=== PATIENT | male | born 1940 | race Caucasian/White ===

== ENCOUNTER → 2019-05-10 | Outpatient (CLI) | payer OTHER, MEDICARE ==
[~2019-05-10] MED LIST: ASA81BEC PO; BENICAR20 MG PO; FISH OIL 1,0001 EAC9 PO; HYDROCHLOROTH12.5 M1 PO; KLOR-CON 1010 MEQ PO; LEVO-T25 MCG PO; LUTEIN6 M1 PO; METFORMIN HCL500 M3 PO; OMEPRAZOLE 20 M20 M1 PO; PEPCID20 MG PO; SIMVASTATIN80 MG PO; SUPER THERAVIT1 EACH PO; TOPROL XL50 MG PO; ZYRTEC10 M5 PO
[2019-05-10 10:57] LABS: CREATININE 1.3 mg/dL (0.7-1.3)
== END ==
LOC: CAT 10:17
PROVIDERS: Family Medicine
DX: I77.810 Thoracic aortic ectasia (principal); M25.78 Osteophyte, vertebrae

== ENCOUNTER 2019-06-03 13:17 | Inpatient (IN) | payer OTHER, MEDICARE ==
[~2019-06-03] VITALS: Ht 175.3 cm; Wt 81.2 kg
[2019-06-03 13:29] VITALS: BP 184/98
--- NOTE | 2019-06-03 13:41 | NUR ---
WITNESS OF STROKE SYMPTOMS CONTACTED BY DR STOVER FOR MORE INFORMATION. CO-WORKER REPORTS DIFFICULTY WITH SPEAKING AND WALKING.
[2019-06-03 13:58] LABS: HEMATOCRIT 41.4 % (42.0-52.0); HEMOGLOBIN 13.8 gm/dL (14.0-18.0); MCH 30.8 pg (26.0-34.0); MCHC 33.3 g/dL (28.0-37.0); MCV 92.5 fL (80.0-100.0); PLATELET COUNT 214 thou/uL (150-400); RBC 4.48 mil/uL (4.50-6.00); RDW 14.5 % (10.5-14.5); WBC 6.2 thou/uL (4.0-11.0)
[2019-06-03 14:11] LABS: ANION GAP 4 mmol/L (7-16); BUN 10 mg/dL (7-18); CALCIUM 9.5 mg/dL (8.5-10.1); CHLORIDE 102 mmol/L (98-107); CO2 33 mmol/L (21-32); CREATININE 1.2 mg/dL (0.7-1.3); GLUCOSE 172 mg/dL (74-106); POTASSIUM 3.7 mmol/L (3.5-5.1); SODIUM 139 mmol/L (136-145)
[2019-06-03 14:12] LABS: APTT 29.9 Seconds (24.5-32.8); PROTIME 10.2 Seconds (9.3-11.4)
[2019-06-03 14:21] LABS: ALBUMIN 3.4 g/dL (3.4-5.0); SGOT 23 U/L (15-37); SGPT 34 U/L (30-65); TOTAL BILIRUBIN 0.4 mg/dL (<0.1-1.0); TOTAL PROTEIN 6.5 g/dL (6.4-8.2); TROPONIN-I <0.06 ng/mL (<0.06)
[2019-06-03 14:28] LABS: ABSOLUTE NEUTROPHILS 4.2 thou/uL (1.4-8.2)
[2019-06-03 14:30] LABS: URINE BILIRUBIN NEGATIVE (Negative); URINE BLOOD NEGATIVE (Negative); URINE CLARITY CLEAR; URINE COLOR YELLOW; URINE GLUCOSE-RANDOM* NEGATIVE (Negative); URINE KETONES NEGATIVE (Negative); URINE LEUKOCYTES-REFLEX NEGATIVE (Negative); URINE NITRITE-REFLEX NEGATIVE (Negative); URINE PROTEIN (DIPSTICK) NEGATIVE (Negative); URINE SPECIFIC GRAVITY 1.015 (1.005-1.035); URINE UROBILINOGEN 0.2 E.U./dl (0.2-1.0)
[2019-06-03 14:38] LABS: AMP/METHAMP Negative (Negative); BARBITURATES Negative (Negative); BENZODIAZEPINES Negative (Negative); COCAINE Negative (Negative); METHADONE Negative (Negative); OPIATES Negative (Negative); PCP Negative (Negative)
[2019-06-03] MEDS ORDERED: ZYRTEC10 M5 PO (14:41)
[2019-06-03] MEDS ORDERED: METFORMIN HCL500 M3 PO (14:41)
[2019-06-03] MEDS ORDERED: BENICAR20 MG PO (14:42)
[2019-06-03] MEDS ORDERED: SIMVASTATIN80 MG PO (14:42)
[2019-06-03] MEDS ORDERED: ASA81BEC PO (14:43)
[2019-06-03] MEDS ORDERED: KLOR-CON 1010 MEQ PO (14:43)
[2019-06-03] MEDS ORDERED: TOPROL XL50 MG PO (14:43)
[2019-06-03] MEDS ORDERED: FISH OIL 1,0001 EAC9 PO (14:43)
[2019-06-03] MEDS ORDERED: SUPER THERAVIT1 EACH PO (14:43)
[2019-06-03] MEDS ORDERED: LEVO-T25 MCG PO (14:43)
[2019-06-03] MEDS ORDERED: OMEPRAZOLE 20 M20 M1 PO (14:44)
[2019-06-03] MEDS ORDERED: LUTEIN6 M1 PO (14:44)
--- NOTE | 2019-06-03 15:12 | NUR ---
ELECTRICAL TESTER BATTERY RN TO SEE PATIENT POST PAGE IN ED ROOM 12. NIHSS COMPLETED WITH A SCORE OF 0. SWALLOW SCREEN COMPLETED AND PATIENT HAS NO COMPLAINTS OR DIFFICULTIES SWALLOWING. 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 DR STOVER NOTIFIED. CT HEAD WAS NEGATIVE AND CTA ORDERED IN ED. WILL CONTINUE TO MONITOR.
[2019-06-03 15:33] VITALS: BP 188/87
[2019-06-03 15:34] VITALS: BP 178/105
--- NOTE | 2019-06-03 16:50 | EKG ---
[place] [address] [facility] [place] [address] ELECTROCARDIOGRAM REPORT Name: KAILA NORRIS Room #: 351-P ADM IN M.R.#: [id number] Admission: 06/03/19 Attend Phys: Joe Kumar MD Discharge: Date of : 36 Report #: [id number] THIS REPORT FOR: //name// [facility] ED Test Date: 2019-06-03 Test Time: 14:07:09 Pat Name: KAILA NORRIS Department: Room: 351 Gender: M Pari Mutuel Clerk: sol : [id number] Requested By: Thaddeus Salas Order Number: [id number] MD: Tera Wallace Measurements Intervals Dunning Rate: 61 P: 40 MD: 196 QRS: -44 QRSD: 106 T: 3 QT: 425 QTc: 428 Interpretive Statements Sinus rhythm LAFB Abnormal R-wave progression, late transition Compared to ECG 06/20/2008 07:13:46 Possible ischemia no longer present Prolonged QT interval no longer present Electronically Signed On 06-03-2019 16:49:48 INFORMATION SYSTEMS PROFESSOR by Tera Wallace [email or web address] <ELECTRONICALLY SIGNED> By: Tera Wallace MD, [facility] 06/03/19 1649 1407 140 Tera Wallace MD, [facility] /EPI
[2019-06-03 17:54] VITALS: BP 157/81
--- NOTE | 2019-06-03 17:54 | NUR ---
ASSUMED CARE OF PATIENT ON ADMISSION TO FLOOR. VSS. ALERT AND ORIENTED X 4. NO NEURO DEFICIENCIES OBSERVED. PATIENT COMPLAINS OF HEADACHE - MEDICATION PROVIDED PARTIAL RELIEF. NEUROLOGY CONSULTED AND SAW PATIENT TODAY. NO ACUTE FINDINGS IN IMAGING. PATIENT CANNOT HAVE MRI DUE TO HARDWARE IN BODY. CONTINUING TO MONITOR.
[2019-06-03 20:48] VITALS: BP 164/86
[2019-06-03] MEDS ORDERED: PEPCID20 MG PO (20:54)
[2019-06-03] MEDS ORDERED: HYDROCHLOROTH12.5 M1 PO (21:29)
--- NOTE | 2019-06-03 23:48 | NUR ---
Patient reported a continuing GUEVARA this evening. He was administered acetaminophen to partial relief. Additional ibuprofen was ordered, which patient declined. Clarence will continue to monitor.
[2019-06-04 00:26] VITALS: BP 151/74
[2019-06-04 05:01] VITALS: BP 165/82
[2019-06-04 07:28] VITALS: BP 169/78
--- NOTE | 2019-06-04 09:28 | 2DMMODE ---
[address] [address] 2 D/M-MODE ECHOCARDIOGRAM Name: MYRNAKAILA Room #: 351-P [facility] IN M.R.#: [id number] Admission: 06/03/19 Attend Phys: Joe Kumar, Discharge: Date of : 36 Report #: [id number] THIS REPORT FOR: //name// APPROVED REPORT Study performed: 06/04/2019 08:27:49 EXAM: Comprehensive 2D, Doppler, and color-flow Echocardiogram Patient Location: Echo lab Status: routine BSA: 1.97 HR: 63 bpm BP: 169/78 mmHg Rhythm: Irregular Other Information Study Quality: Good Indications CVA/TIA Echo Enhancing Agent Indication: Rule out Shunt Agent(s) / Amount(s) Used: Agitated Saline 8 cc Comments: No shunting noted by contrast bubble injection. Left Ventricle The left ventricle is normal size. There is normal left ventricular wall thickness. The left ventricular systolic function is normal. The left ventricular ejection fraction is within the normal range. LVEF is 55-60%. Right Ventricle The right ventricle is normal size. Atria The left atrium size is normal. No shunting by contrast bubble injection The right atrium size is normal. Aortic Valve The aortic valve is mildly calcified. Mitral Valve The anterior mitral valve leaflet is mildly calcified. [address] [place] [address] 2 D/M-MODE ECHOCARDIOGRAM Name: KAILA NORRIS Room #: 351-P ADM IN M.R.#: [id number] Admission: 06/03/19 Attend Phys: Joe Kumar, Discharge: Date of : 36 Report #: [id number] Tricuspid Valve The tricuspid valve is normal in structure. Pulmonic Valve The pulmonary valve is normal in structure. Great Vessels IVC is normal in size and collapses >50% with inspiration. Pericardium There is no pericardial effusion. <Conclusion> Abbreviated study, no Doppler The left ventricular systolic function is normal. LVEF is 55-60%. No shunting by contrast bubble injection The aortic valve is mildly calcified. The anterior mitral valve leaflet is mildly calcified. There is no pericardial effusion. <ELECTRONICALLY SIGNED> By: Tera Wallace MD, FACC 06/04/19926 6 6 Tera Wallace MD, FACC /INF
[2019-06-04 10:10] VITALS: BP 169/78
--- NOTE | 2019-06-04 10:21 | NUR ---
ASSUMED PATIENT CARE AT 0700. AMBULATED IN HALLWAY. NO DISDRESS NOTED. DC TO HOME SOON.
--- NOTE | 2019-06-21 13:29 | HC ---
[facility] [place] [address] CONSULTATION Name: KAILA NORRIS Room #: 351-P [facility] IN M.R.#: [id number] Admission: 06/03/19 Attend Phys: Joe Kumar MD Discharge: 06/04/19 Date of : 36 Report #: [id number] THIS REPORT FOR: //name// CC: Joe Kumar DATE OF SERVICE: 06/03/2019 HISTORY OF PRESENT ILLNESS: This is an 79-year-old male patient who was evaluated by me because he had an episode where he had some speech problem and some incoordination with his hands. This happened this morning and other people noticed that. He was brought to the Emergency Room and he was worked up by the Emergency Room physician. He had a CT scan of the head done and subsequently CT angiogram of the head and neck and they were unremarkable. The plan was to do an MRI in this patient, but the patient is very claustrophobic and he has a penile implant. He was having some memory issues as an outpatient and he was scheduled to have an MRI anyway, but that MRI could not be done because he was not cleared by his urologist from the penile implant perspective. He is better. His speech has recovered and is better with his hand and he has a headache now. Headache is generalized. He has a longstanding history of migraine. He used to get 2-3 migraines per week. Then, he was put on beta blockers that took care of the migraine and he has not had one for a long time. He does not know whether he had an echocardiogram to look for patent foramen ovale or not in the past. He had stent put in. So, he had echocardiogram done, but he does not know whether they were the bubble studies to look for patent foramen ovale or not. REVIEW OF SYSTEMS: Positive for what looks like memory problem. He had some cough and fatigue recently. According to the family, he was diagnosed with pneumonia. He had a prior history of stent. He does have a history of high cholesterol. His blood sugar has been high at 172. This was his relevant 14-point review of system. PAST MEDICAL HISTORY: Positive for migraine. FAMILY HISTORY: Unremarkable. SOCIAL HISTORY: The patient has a very supportive family and they were there in the room when I talked to them. PHYSICAL EXAMINATION: Indicate that this patient is alert, responsive. He can follow simple commands. His speech looks intact now. He got some fentanyl, so his cognition is difficult to evaluate. His cranial nerve examination appeared mostly unremarkable. His neuromuscular examination as checked for strength, sensation, reflexes and tones are symmetrical. There is no cerebellar sign. I could not look at the patient's fundus. There is no meningeal sign. He is [address] [address] CONSULTATION Name: KAILA NORRIS Room #: 351-P [facility] IN M.R.#: [id number] Admission: 06/03/19 Attend Phys: Jeo Kumar MD Discharge: 06/04/19 Date of : 36 Report #: [id number] reasonably well-developed individual who does not have any hearing or vision problem. His heart examination looks unremarkable. No respiratory difficulty or rhonchi was noticed. Pulses are palpable. He has no edema, cyanosis or jaundice. Blood pressure is 178/105, respiration is 18, pulse is 65, temperature is 98.4. His blood pressure has fluctuated a lot. IMPRESSION AND PLAN: Since the patient's CT angiogram is normal most likely, he had hemiplegic migraine. It is not possible to tell whether he had a stroke because of this hemiplegic migraine or for any other reason because he cannot have an MRI because of the reasons described above. Even if he had a stroke, limited thing can be done about it. He is outside the window for TPA. His CT angiogram is normal indicating that there is no indication to do thrombectomy. He does need some further workup, will check a sed rate. He needs an echocardiogram with a bubble study, if it is not done. This is because of persistent migraine in the past and the fact that those patients tend to have a high incidence of PFO and since he does appear to have a TIA or ischemic event that may be an indication to close his PFO. I discussed all of it with the patient in detail and he understands that. I will call Dr. Kumar and talked to him tonight. I will continue him on aspirin and we will follow up this patient with you. <ELECTRONICALLY SIGNED> By: Gavin Lozano MD 06/21/19 1329 [id number] 0106 Gavin Lozano MD /nt
== END 2019-06-04 10:39 | disposition home or self-care (01) | DRG 103 ==
LOC: ER 13:17 → 3W 14:51 → EROBS 14:51 → 3W 15:24 → ENTRNSPT 06-04 10:19 → EDTRNSPTSTS 06-04 10:23 → 3W 06-04 10:39
PROVIDERS: Emergency Medicine; ADMIT Family Medicine
DX: G43.409 Hemiplegic migraine, not intractable, without status migrainosus (principal); G45.9 Transient cerebral ischemic attack, unspecified; R47.01 Aphasia; I10 Essential (primary) hypertension; E78.00 Pure hypercholesterolemia, unspecified; Z96.0 Presence of urogenital implants; E78.5 Hyperlipidemia, unspecified; E11.65 Type 2 diabetes mellitus with hyperglycemia; I25.10 Atherosclerotic heart disease of native coronary artery without angina pectoris; Z87.01 Personal history of pneumonia (recurrent); Z79.899 Other long term (current) drug therapy; Z79.84 Long term (current) use of oral hypoglycemic drugs; Z95.5 Presence of coronary angioplasty implant and graft; Z88.6 Allergy status to analgesic agent
CPT/HCPCS: 10879

== ENCOUNTER 2020-03-03 18:15 | Emergency (ER) | payer OTHER, MEDICARE ==
[~2020-03-03] VITALS: Ht 175.3 cm; Wt 79.4 kg
[2020-03-03] MEDS ORDERED: PROMETH-CODEIN 65 ML PO (19:31)
[2020-03-03] MEDS ORDERED: PREDNISONE 20 M20 M1 PO (19:31)
[2020-03-03 19:59] VITALS: BP 171/84
== END 2020-03-03 20:05 | disposition home or self-care (01) ==
LOC: ER 18:15
DX: R05 Cough (principal); Z20.828 Contact with and (suspected) exposure to other viral communicable diseases; R09.81 Nasal congestion; R07.9 Chest pain, unspecified; R51 Headache; E11.9 Type 2 diabetes mellitus without complications; I10 Essential (primary) hypertension; E78.00 Pure hypercholesterolemia, unspecified; Z90.89 Acquired absence of other organs; Z98.61 Coronary angioplasty status; Z98.890 Other specified postprocedural states; Z79.899 Other long term (current) drug therapy

== ENCOUNTER → 2020-05-08 | Outpatient (CLI) | payer OTHER, MEDICARE ==
[~2020-05-08] MED LIST changes: +PREDNISONE 20 M20 M1 PO; +PROMETH-CODEIN 65 ML PO
== END ==
LOC: SJCVC 11:06
PROVIDERS: ATTEND Internal Medicine Cardiovascular Disease
DX: I25.10 Atherosclerotic heart disease of native coronary artery without angina pectoris (principal); R94.31 Abnormal electrocardiogram [ECG] [EKG]; I10 Essential (primary) hypertension; E78.00 Pure hypercholesterolemia, unspecified; E11.9 Type 2 diabetes mellitus without complications; Z79.82 Long term (current) use of aspirin; Z79.899 Other long term (current) drug therapy; Z87.891 Personal history of nicotine dependence; Z86.73 Personal history of transient ischemic attack (TIA), and cerebral infarction without residual deficits; Z82.49 Family history of ischemic heart disease and other diseases of the circulatory system

== ENCOUNTER → 2020-05-15 | Outpatient (CLI) | payer OTHER, MEDICARE | LOC: SJCVCIMAG 09:37 | PROVIDERS: ATTEND Internal Medicine Cardiovascular Disease | DX: I25.10 Atherosclerotic heart disease of native coronary artery without angina pectoris (principal); I49.3 Ventricular premature depolarization; E78.5 Hyperlipidemia, unspecified; I10 Essential (primary) hypertension; E11.9 Type 2 diabetes mellitus without complications; Z79.899 Other long term (current) drug therapy; Z87.891 Personal history of nicotine dependence ==

== ENCOUNTER → 2021-02-11 | Outpatient (CLI) | payer OTHER, MEDICARE | LOC: SJCVCIMAG 08:55 | PROVIDERS: ATTEND Internal Medicine Cardiovascular Disease | DX: I25.10 Atherosclerotic heart disease of native coronary artery without angina pectoris (principal); R06.00 Dyspnea, unspecified; R53.83 Other fatigue; Z79.899 Other long term (current) drug therapy ==

== ENCOUNTER → 2021-04-16 | Outpatient (CLI) | payer OTHER, MEDICARE | LOC: ULTRA 09:03 | PROVIDERS: ATTEND Family Medicine | DX: N28.1 Cyst of kidney, acquired (principal); N20.0 Calculus of kidney; M54.59 Other low back pain ==

== ENCOUNTER → 2021-05-05 | Outpatient (CLI) | payer OTHER, MEDICARE ==
[~2021-05-05] VITALS: Ht 175.3 cm; Wt 81.6 kg
[~2021-05-05] MED LIST changes: +ASPIRIN EC325 M1 PO; +FLOMAX0.4 MG PO; +FLONASE 0.05%50 MCG NARES; -LEVO-T25 MCG PO; +LEVO-T75 MCG PO; +PREVAGEN PO; +VALSARTAN160 MG PO
[2021-05-05 09:14] VITALS: BP 175/92
--- NOTE | 2021-05-05 09:55 | NUR ---
Pain Clinic Assessment: 1. History of Osteoarthritis: DENIES History of Rheumatoid Arthritis: DENIES 2. Height: 5 ft. 9 in. 175.3 cm. Weight: 180.0 lb. oz. 81.648 kg. Patient's BMI: 26.6 3. Vital Signs: BP: 175/92 Pulse: 63 Resp: 18 Temp: 02 Sat: 98 ECG Mon: 4. Pain Intensity: 5 5. Fall Risk: Dizziness: N Needs help standing or walking: N Fallen in the last 3 months: N Fall risk comments: 6. Patient on Blood Thinner: None 7. History of Hypertension: Y 8. Opioid Therapy greater than 6 weeks: N Opiate Contract Signed: 9. Risk Assessment Tool Provided: LOW-0 10. Functional Assessment Tool: 43/ 11. Recreational Drug Use: Never Drug Type: Tobacco Use: Former Smoker Tobacco Type: Amount or Packs/day: How Many Years: Alcohol Use: No Frequency: Quant:
== END ==
LOC: PAIN 06:45
PROVIDERS: ATTEND Anesthesiology Pain Medicine
DX: M54.50 Low back pain, unspecified (principal); I10 Essential (primary) hypertension; I25.10 Atherosclerotic heart disease of native coronary artery without angina pectoris; Z79.82 Long term (current) use of aspirin; Z79.84 Long term (current) use of oral hypoglycemic drugs

== ENCOUNTER → 2021-05-12 | Outpatient (CLI) | payer OTHER, MEDICARE | LOC: SJCVCIMAG 07:10 | PROVIDERS: ATTEND Internal Medicine Cardiovascular Disease | DX: I25.10 Atherosclerotic heart disease of native coronary artery without angina pectoris (principal); I10 Essential (primary) hypertension; E78.5 Hyperlipidemia, unspecified; E11.9 Type 2 diabetes mellitus without complications; R06.00 Dyspnea, unspecified; Z87.891 Personal history of nicotine dependence ==